=== PATIENT | female | born 1990 | race Caucasian/White ===

== ENCOUNTER 2016-11-06 19:06 | Emergency (ER) | payer OTHER | END 2016-11-07 00:15 | disposition left against medical advice (07) | LOC: ER 19:06 | DX: Z53.21 Procedure and treatment not carried out due to patient leaving prior to being seen by health care provider (principal) | CPT/HCPCS: 99211 ==

== ENCOUNTER 2016-11-12 18:48 | Emergency (ER) | payer OTHER | END 2016-11-13 01:48 | disposition home or self-care (01) | LOC: ER 18:48 | DX: R10.2 Pelvic and perineal pain (principal); G89.18 Other acute postprocedural pain; J45.909 Unspecified asthma, uncomplicated | CPT/HCPCS: 99283 ==